=== PATIENT | male | born 1945 | race Hispanic/Latino ===

== ENCOUNTER 2020-06-15 20:18 | Inpatient (IN) | payer MEDICARE, OTHER ==
[2020-06-15 21:21] LABS: ALT (SGPT) 49 U/L (8-55); AST (SGOT) 30 U/L (5-34); Albumin 3.7 g/dL (3.4-4.8); Alkaline Phosphatase 103 U/L (40-110); Anion Gap 16 mmol/L (10-20); BUN (Urea Nitrogen) 18 mg/dL (8.4-25.7); Bilirubin, Total 0.5 mg/dL (0.2-1.2); Calc. Creatinine Clearance 0 mL/min (70-130); Calcium 8.9 mg/dL (7.8-10.44); Carbon Dioxide 22 mmol/L (23-31); Chloride 100 mmol/L (98-107); Globulin 2.8 g/dL (2.4-3.5); Glucose 176 mg/dL (83-110); Potassium 4.3 mmol/L (3.5-5.1); Protein, Total 6.5 g/dL (5.8-8.1); Sodium 134 mmol/L (136-145)
[2020-06-15 21:27] LABS: #Basophils 0.1 10x3/uL (0.0-0.2); #Eosinphils 0.2 10x3/uL (0.0-0.5); #Monocytes 0.7 10x3/uL (0.0-1.1); #Neutrophils 5.3 10x3/uL (1.5-8.4); %Basophils 0.7 % (0.0-2.0); %Eosinophils 2.4 % (0.0-6.0); %Lymphocytes 16.4 % (18.0-47.0); %Monocytes 9.2 % (0.0-10.0); %Neutrophils 70.6 % (40.0-75.0); Hemoglobin 12.2 g/dL (13.5-17.5); Mean Corpuscular HGB CONC 33.2 g/dL (32.0-36.0); Mean Corpuscular Hemoglobin 32.7 pg (27.0-33.0); Mean Corpuscular Volume 98.7 fl (81.2-95.1); Mean Platelet Volume 9.6 fl (7.4-10.4); Platelet Count 261 10x3/uL (150-450); RBC Distribution Width 12.9 % (11.5-14.5); Red Blood Cell (RBC) Count 3.73 10x6/uL (4.32-5.72); White Blood Cell (WBC) Count 7.5 10x3/uL (3.5-10.5)
[2020-06-15 21:44] LABS: CKMB 1.2 ng/mL (0-6.6)
[2020-06-15] MEDS ORDERED: Enoxaparin Sodium 100 MG/ML SYRINGE ONE (21:45)
[2020-06-15] MEDS ORDERED: Aspirin Chewable 81 MG TAB ONE (21:45)
[2020-06-15] MEDS ORDERED: Sodium Chloride 0.9% 500 ML IV SCH (23:45)
[2020-06-15] MEDS ORDERED: Dextrose 50% Abboject 50 ML SYRINGE SLOW IVP PRN (23:51)
[2020-06-15] MEDS ORDERED: HYDROcodone/Acetaminophen 5/325 mg Tablet PO PRN (23:51)
[2020-06-15] MEDS ORDERED: Ondansetron PF 4 MG/2 ML Vial IVP PRN (23:51)
[2020-06-15] MEDS ORDERED: Acetaminophen 325 MG TAB PO PRN (23:51)
[2020-06-15] MEDS ORDERED: HumaLOG 300 UNITS/3 ML VIAL SC PRN (23:51)
[2020-06-15] MEDS ORDERED: Senokot S 8.6-50 MG TAB PO PRN (23:51)
[2020-06-15] MEDS ORDERED: Dextrose 5% in Water 1,000 ML IV PRN (23:51)
[2020-06-15] MEDS ORDERED: Zolpidem Tartrate 5 MG TAB PO PRN (23:51)
[2020-06-15] MEDS ORDERED: Calcium Carbonate 500 MG ChewTAB PO PRN (23:51)
[2020-06-16 01:23] VITALS: BMI 34.5
[2020-06-16] MEDS ORDERED: Nitroglycerin 2% Ointment 1 INCH/1 GM Packet TOP SCH (02:00)
[2020-06-16 07:46] LABS: #Eosinphils 0.1 10x3/uL (0.0-0.5); #Monocytes 0.6 10x3/uL (0.0-1.1); #Neutrophils 3.7 10x3/uL (1.5-8.4); %Basophils 0.7 % (0.0-2.0); %Eosinophils 2.1 % (0.0-6.0); %Lymphocytes 21.7 % (18.0-47.0); %Monocytes 9.7 % (0.0-10.0); %Neutrophils 64.9 % (40.0-75.0); Hemoglobin 11.7 g/dL (13.5-17.5); Mean Corpuscular HGB CONC 33.1 g/dL (32.0-36.0); Mean Corpuscular Hemoglobin 32.2 pg (27.0-33.0); Mean Corpuscular Volume 97.5 fl (81.2-95.1); Mean Platelet Volume 9.4 fl (7.4-10.4); Platelet Count 249 10x3/uL (150-450); RBC Distribution Width 12.6 % (11.5-14.5); Red Blood Cell (RBC) Count 3.63 10x6/uL (4.32-5.72); White Blood Cell (WBC) Count 5.7 10x3/uL (3.5-10.5)
[2020-06-16 07:59] LABS: Anion Gap 12 mmol/L (10-20); BUN (Urea Nitrogen) 14 mg/dL (8.4-25.7); Calc. Creatinine Clearance 154 mL/min (70-130); Calcium 8.5 mg/dL (7.8-10.44); Carbon Dioxide 25 mmol/L (23-31); Chloride 103 mmol/L (98-107); Cholesterol 89 mg/dl (< 200 Desired); Glucose 140 mg/dL (83-110); HDL Cholesterol 30 mg/dL (>60 Neg Risk); LDL Cholesterol, Calculated 47 mg/dL; Potassium 3.9 mmol/L (3.5-5.1); Sodium 136 mmol/L (136-145); Triglycerides 61 mg/dL (Less than 150)
[2020-06-16] MEDS ORDERED: metFORMIN 500 MG TAB PO SCH (08:00)
[2020-06-16 08:27] LABS: CKMB 6.6 ng/mL (0-6.6)
[2020-06-16] MEDS ORDERED: Aspirin 81 mg Enteric Coated Tablet PO SCH (09:00)
[2020-06-16] MEDS: Nitroglycerin 0.4 MG TAB (25 Tab Bottle) SL PRN ×3 (09:26→09:36)
[2020-06-16] MEDS: Losartan 25 MG TAB PO SCH (09:32)
[2020-06-16] MEDS: Glimepiride 2 MG TAB PO SCH (09:33)
[2020-06-16 10:04] LABS: Troponin I 1.221 ng/mL (< 0.028)
[2020-06-16] MEDS: Morphine 2 MG/ML VIAL SLOW IVP PRN ×2 (10:08→17:00)
[2020-06-16 11:18] LABS: Hemoglobin A1c 6.9 % (4.0-6.0)
[2020-06-16 11:36] LABS: SARS-CoV-2 NAA Rapid Test DETECTED (NotDetected)
[2020-06-16] MEDS: Enoxaparin Sodium 120 MG/0.8 ML SYRINGE SC SCH ×2 (13:34→23:19)
[2020-06-16] MEDS ORDERED: Heparin 10,000 UNITS/ 10 ML VIAL ONE (18:20)
[2020-06-16] MEDS ORDERED: Nitroglycerin 50 MG/250 ML BOT 250 ML ONE (18:20)
[2020-06-16] MEDS ORDERED: Midazolam HCl 5 mg/5 ml Vial ONE (18:21)
[2020-06-16] MEDS ORDERED: Fentanyl 100 MCG/2 ML VIAL ONE (18:21)
[2020-06-16] MEDS ORDERED: Adenosine 6 MG/2 ML VIAL ONE (18:21)
[2020-06-16] MEDS ORDERED: Sodium Chloride 0.9% 1,000 ML ONE (18:22)
[2020-06-16] MEDS ORDERED: Lidocaine 1% (PF) 30 ML VIAL ONE (18:26)
[2020-06-16] MEDS ORDERED: TICAGRELOR 90 MG TABLET ONE ×2 (19:26→19:27)
[2020-06-16] MEDS ORDERED: Protamine Sulfate 50 MG/5 ML VIAL ONE (19:56)
[2020-06-16] MEDS ORDERED: Mag-Al 1200 mg/1200 mg/30 ML UDCUP PO PRN (20:12)
[2020-06-16] MEDS ORDERED: cloNIDine 0.1 MG TAB PO PRN (20:12)
[2020-06-16] MEDS ORDERED: traMADol HCl 50 MG TAB PO PRN (20:12)
[2020-06-16] MEDS ORDERED: Milk Of Magnesia 30 ML UDCUP PO PRN (20:12)
[2020-06-16] MEDS ORDERED: Zolpidem Tartrate 5 MG TAB PO PRN (20:12)
[2020-06-16] MEDS ORDERED: Acetaminophen/Codeine 30-300mg Tablet PO PRN (20:12)
[2020-06-16] MEDS ORDERED: Sodium Chloride 0.9% 1,000 ML IV SCH (20:15)
[2020-06-16] MEDS ORDERED: Atorvastatin Calcium 40 MG TAB PO SCH (21:00)
[2020-06-16] MEDS ORDERED: Atorvastatin Calcium 20 MG TAB PO SCH (21:00)
[2020-06-16] MEDS: Metoprolol Tartrate 25 MG TAB PO SCH (22:11)
[2020-06-16] MEDS: TICAGRELOR 90 MG TABLET PO SCH (22:12)
[2020-06-17 05:48] LABS: #Basophils 0.1 10x3/uL (0.0-0.2); #Eosinphils 0.1 10x3/uL (0.0-0.5); #Monocytes 0.8 10x3/uL (0.0-1.1); #Neutrophils 6.4 10x3/uL (1.5-8.4); %Basophils 0.6 % (0.0-2.0); %Eosinophils 1.3 % (0.0-6.0); %Lymphocytes 13.5 % (18.0-47.0); %Monocytes 8.9 % (0.0-10.0); %Neutrophils 75.1 % (40.0-75.0); Hemoglobin 12.3 g/dL (13.5-17.5); Mean Corpuscular HGB CONC 33.8 g/dL (32.0-36.0); Mean Corpuscular Hemoglobin 32.4 pg (27.0-33.0); Mean Corpuscular Volume 95.8 fl (81.2-95.1); Mean Platelet Volume 9.4 fl (7.4-10.4); Platelet Count 245 10x3/uL (150-450); RBC Distribution Width 13.2 % (11.5-14.5); White Blood Cell (WBC) Count 8.5 10x3/uL (3.5-10.5)
[2020-06-17 07:25] LABS: ALT (SGPT) 43 U/L (8-55); AST (SGOT) 48 U/L (5-34); Albumin 3.3 g/dL (3.4-4.8); Alkaline Phosphatase 66 U/L (40-110); Anion Gap 13 mmol/L (10-20); BUN (Urea Nitrogen) 7 mg/dL (8.4-25.7); Bilirubin, Total 0.7 mg/dL (0.2-1.2); Calc. Creatinine Clearance 156 mL/min (70-130); Calcium 8.4 mg/dL (7.8-10.44); Carbon Dioxide 22 mmol/L (23-31); Chloride 105 mmol/L (98-107); Globulin 2.8 g/dL (2.4-3.5); Glucose 163 mg/dL (83-110); Potassium 3.8 mmol/L (3.5-5.1); Protein, Total 6.1 g/dL (5.8-8.1); Sodium 136 mmol/L (136-145)
[2020-06-17 08:05] VITALS: BP 148/77; TEMP 97.7
[2020-06-17] MEDS: Losartan 25 MG TAB PO SCH (08:36)
[2020-06-17] MEDS: TICAGRELOR 90 MG TABLET PO SCH (08:37)
[2020-06-17] MEDS: Metoprolol Tartrate 25 MG TAB PO SCH (08:39)
[2020-06-17] MEDS ORDERED: Lisinopril 2.5 MG TAB PO SCH (09:00)
[2020-06-17] MEDS ORDERED: Aspirin Chewable 81 MG TAB PO SCH (09:00)
[2020-06-17] MEDS: Glimepiride 2 MG TAB PO SCH (09:26)
== END 2020-06-17 13:08 | disposition home or self-care (01) | DRG 247 ==
LOC: CSHERS 20:18 → CSHTELE 06-16 01:15 → INTOOBSV 06-16 01:15 → CSHTELE 06-16 10:39 → OBSVTOIN 06-16 18:06
PROVIDERS: ADMIT Student in an Organized Health Care Education/Training Program; ATTEND Hospitalist
PROC: 4A023N7 Measurement of Cardiac Sampling and Pressure, Left Heart, Percutaneous Approach (ICD-10-PCS; principal; 2020-06-16)
PROC: 027034Z Dilation of Coronary Artery, One Artery with Drug-eluting Intraluminal Device, Percutaneous Approach (ICD-10-PCS; 2020-06-16)
PROC: B2160ZZ Fluoroscopy of Right and Left Heart using High Osmolar Contrast (ICD-10-PCS; 2020-06-16)
PROC: B2110ZZ Fluoroscopy of Multiple Coronary Arteries using High Osmolar Contrast (ICD-10-PCS; 2020-06-16)
PROC: B241ZZ3 Ultrasonography of Multiple Coronary Arteries, Intravascular (ICD-10-PCS; 2020-06-16)
DX: I21.4 Non-ST elevation (NSTEMI) myocardial infarction (principal); I25.110 Atherosclerotic heart disease of native coronary artery with unstable angina pectoris; E78.5 Hyperlipidemia, unspecified; E11.65 Type 2 diabetes mellitus with hyperglycemia; Z86.16 Personal history of COVID-19; E66.01 Morbid (severe) obesity due to excess calories; D53.9 Nutritional anemia, unspecified; T50.995A Adverse effect of other drugs, medicaments and biological substances, initial encounter; Y92.230 Patient room in hospital as the place of occurrence of the external cause; R41.0 Disorientation, unspecified; I11.9 Hypertensive heart disease without heart failure; Z90.49 Acquired absence of other specified parts of digestive tract; Z79.84 Long term (current) use of oral hypoglycemic drugs; Z79.82 Long term (current) use of aspirin; Z79.899 Other long term (current) drug therapy; Z68.36 Body mass index [BMI] 36.0-36.9, adult; Z87.898 Personal history of other specified conditions; Z83.3 Family history of diabetes mellitus
CPT/HCPCS: 36415; 36416; 71045; 80048; 80053; 80061; 82553; 82607; 82746; 83036; 84484; 85025; 85347; 85379; 92928; 92978; 92979; 93005; 93010; 93306; 93458; 96372; 96374; 96375; 99152; 99153; C1753; C1760; C1874; C1887; C9600; G0378; J0153; J1644; J1650; J2001; J2250; J2270; J2720; J3010; J7050; U0002

== ENCOUNTER 2023-08-17 13:19 | Emergency (ER) | payer MEDICARE ==
[2023-08-17 14:11] LABS: ALT (SGPT) 30 U/L (8-55); AST (SGOT) 23 U/L (5-34); Albumin 3.2 g/dL (3.4-4.8); Alkaline Phosphatase 61 U/L (40-110); Anion Gap 21 mmol/L (10-20); BUN (Urea Nitrogen) 65 mg/dL (8.4-25.7); Bilirubin, Total 0.7 mg/dL (0.2-1.2); Calc. Creatinine Clearance 0 mL/min (70-130); Calcium 8.3 mg/dL (7.8-10.44); Carbon Dioxide 14 mmol/L (23-31); Chloride 105 mmol/L (98-107); Estimated GFR 69; Globulin 2.1 g/dL (2.4-3.5); Glucose 316 mg/dL (83-110); Lipase 58 U/L (8-78); Potassium 4.5 mmol/L (3.5-5.1); Protein, Total 5.3 g/dL (5.8-8.1); Sodium 135 mmol/L (136-145)
[2023-08-17 14:23] LABS: Actual Bicarbonate (HCO3v) 18.8 mEq/L (22-28); Analyzer IN Cardio CS ER; Base Excess -6.5 mEq/L (-2 - +2); Calcium, Ionized (venous) 1.12 mmol/L (1.16-1.32); Chloride (VBG) 102 mmol/L (98-106); Hematocrit-VBG 17 % (42.0-52.0); Hemoglobin (Hb) 5.9 g/dL (12.6-17.4); Potassium (VBG) 4.37 mmol/L (3.70-5.30); Puncture Site Other Site; RapidComm Collect By LAB; Sodium 134 mmol/L (133-146); pH (venous) 7.337 (7.32-7.43)
[2023-08-17 14:25] LABS: Phosphorus 3.4 mg/dL (2.3-4.7)
[2023-08-17 14:27] LABS: #Basophils 0.01 10x3/uL (0.0-0.2); #Monocytes 0.51 10x3/uL (0.0-1.1); #Neutrophils 8.09 10x3/uL (1.5-8.4); %Basophils 0.1 % (0.0-2.0); %Lymphocytes 12.6 % (18.0-47.0); %Monocytes 5.1 % (0.0-10.0); %Neutrophils 80.5 % (40.0-75.0); Hematocrit 14.5 % (38.8-50.0); Mean Corpuscular HGB CONC 34.5 g/dL (32.0-36.0); Mean Corpuscular Hemoglobin 34.7 pg (27.0-33.0); Mean Corpuscular Volume 100.7 fL (81.2-95.1); Mean Platelet Volume 9.8 fL (7.4-10.4); Platelet Count 143 10x3/uL (150-450); RBC Distribution Width 13.4 % (11.5-14.5); Red Blood Cell (RBC) Count 1.44 10x6/uL (4.32-5.72); White Blood Cell (WBC) Count 10.1 10x3/uL (3.5-10.5)
[2023-08-17 14:28] LABS: Reflex for Review?? YES
[2023-08-17 14:43] LABS: Bilirubin Neg (Negative); Blood, Urine Negative (Negative); Clarity Clear (Clear); Glucose, Urine (Dipstick) 250 mg/dL (Negative); Ketone, Urine Negative (Negative); Leukocyte Negative (Negative); Nitrite Negative (Negative); Protein, Urine (Dipstick) Negative (Neg-Trace); Specific Gravity, Urine 1.015 (1.005-1.030); Urobilinogen Normal mg/dL (Less than 2)
[2023-08-17 14:58] LABS: Bacteria/HPF Rare-Few HPF (None Seen); CAUTI Indications for Culture Alt mental st,lethar; RBC/HPF 0-3 HPF (0-3); Squamous Epithelial None Seen HPF (0-3); WBC/HPF 0-3 HPF (0-3)
[2023-08-17 15:00] LABS: Urine Culture Reflex No No
[2023-08-17 15:24] LABS: Iron 193 ug/dL (65-175); Iron Binding Capacity, Total 248 mcg/dL (261-462)
[2023-08-17] MEDS ORDERED: Pantoprazole 40 MG VIAL ONE (15:32)
[2023-08-17] MEDS ORDERED: Piperacillin/Tazobactam 4.5 GM VIAL ONE (15:32)
[2023-08-17 15:48] LABS: PTT 22.5 sec (22.0-33.0); Prothrombin Time 11.2 sec (9.5-12.1)
[2023-08-17] MEDS ORDERED: VANCOMYCIN 2 GRAM/400 ML BAG 2 GM in Premix 1 BAG IVPB SCH (16:00)
== END 2023-08-17 17:48 | disposition short-term general hospital (02) ==
LOC: CSHERS 13:19
DX: K92.2 Gastrointestinal hemorrhage, unspecified (principal); D64.9 Anemia, unspecified; E11.9 Type 2 diabetes mellitus without complications; I10 Essential (primary) hypertension; Z79.84 Long term (current) use of oral hypoglycemic drugs; Z79.82 Long term (current) use of aspirin; Z79.899 Other long term (current) drug therapy
CPT/HCPCS: 36430; 70450; 71045; 80053; 81001; 82010; 82728; 82805; 82962; 83540; 83550; 83605; 83690; 83735; 84100; 85025; 85610; 85730; 86850; 86900; 86901; 86920; 93005; 94760; C9113; J2543; J3370; P9016; 36415; 36416; 82274; 85060; 93010